=== PATIENT | male | born 1965 | race African-American/Black ===

== ENCOUNTER 2017-08-01 15:05 | Emergency (ER) | payer MEDICAID ==
[~2017-08-01] VITALS: Ht 185.4 cm; Wt 82.0 kg
[2017-08-01] MEDS ORDERED: QUET25TA PO (15:38)
[2017-08-01 17:24] LABS: BASOPHILS % (AUTO) 0.5 % (0.0-2.0); EOSINOPHILS % (AUTO) 1.2 % (1.0-6.0); HEMATOCRIT 38.9 % (41-53); HEMOGLOBIN 12.8 g/dL (13.5-17.5); LYMPHOCYTES # (AUTO) 1.7 K/uL (1.0-4.8); LYMPHOCYTES % (AUTO) 46.7 % (22.0-44.0); MEAN CORPUSCULAR HEMOGLOBIN 27.6 pg (26.0-34.0); MEAN CORPUSCULAR HGB CONC 32.9 G/dL (31.0-37.0); MEAN CORPUSCULAR VOLUME 84 fL (80-100); MONOCYTES # (AUTO) 0.4 K/uL (0.1-1.0); MONOCYTES % (AUTO) 11.1 % (2.0-9.0); NEUTROPHILS # (AUTO) 1.5 K/uL (1.8-7.7); NEUTROPHILS % (AUTO) 40.5 % (40.0-70.0); PLATELET COUNT (AUTO) 223 K/uL (150-450); RED BLOOD CELL COUNT(AUTO) 4.64 MIL/uL (4.50-5.90); RED CELL DISTRIBUTION WIDTH 15.1 % (11.5-14.5)
[2017-08-01 17:28] LABS: ANION GAP 10 mmol/L (8-16); CALCIUM, TOTAL 9.3 mg/dL (8.8-10.5); CARBON DIOXIDE 29 mmol/L (22-29); CHLORIDE 102 mmol/L (98-107); CREATININE 1.17 mg/dL (0.60-1.30); GLOMERULAR FILTR. RATE CALC > 60 mL/min (>60); GLUCOSE,RANDOM 145 mg/dL (70-110); POTASSIUM 3.6 mmol/L (3.5-5.1); SODIUM SERUM 141 mmol/L (136-145); UREA NITROGEN, BLOOD 19 mg/dL (7-18)
[2017-08-01 17:34] LABS: ALANINE AMINOTRANSFERASE 39 U/L (12-78); ALBUMIN 3.9 g/dL (3.4-5.0); ALKALINE PHOSPHATASE 63 U/L (46-116); ASPARTATE AMINOTRANSFERASE 35 U/L (15-37); BILIRUBIN,TOTAL 0.2 mg/dL (0.1-1.0); TOTAL PROTEIN, SERUM 7.8 g/dL (6.4-8.2)
[2017-08-01 19:30] VITALS: BP 157/98
== END 2017-08-01 19:43 | disposition home or self-care (01) ==
LOC: EMS 15:07
DX: F25.9 Schizoaffective disorder, unspecified (principal); Z02.89 Encounter for other administrative examinations
CPT/HCPCS: 36415; 80053; 85025; 99284; G0480

== ENCOUNTER 2018-03-09 15:31 | Inpatient (IN) | payer MEDICAID ==
[~2018-03-09] VITALS: Ht 185.4 cm; Wt 77.0 kg
[~2018-03-09 15:31] MED LIST: QUET25TA PO
[2018-03-13 14:23] VITALS: BP 123/78
[2018-03-13] MEDS ORDERED: ZOLPIDEM TARTRATE 10 MG TABLET PO PRN (14:30)
[2018-03-13] MEDS ORDERED: LORazepam 2 MG TABLET PO PRN (14:30)
[2018-03-13] MEDS ORDERED: HALOPERIDOL 5 MG TABLET PO PRN (14:30)
[2018-03-13] MEDS ORDERED: DIPH50 PO (15:14)
[2018-03-13 16:30] VITALS: BP 122/79
[2018-03-13 16:58] VITALS: BP 122/79
[2018-03-13] MEDS: OLANZapine 10 MG TABLET PO SCH (21:00)
[2018-03-14 00:49] VITALS: BP 112/70
[2018-03-14] MEDS: OLANZapine 10 MG TABLET PO SCH ×2 (09:00→09:48)
[2018-04-15] MEDS ORDERED: QUET200T PO (12:42)
== END 2018-03-14 14:40 | disposition home or self-care (01) | DRG 750 ==
LOC: B2S 03-13 13:30
PROVIDERS: ADMIT Psychiatry & Neurology Psychiatry; ATTEND Psychiatry & Neurology Psychiatry
PROC: 3E0234Z Introduction of Serum, Toxoid and Vaccine into Muscle, Percutaneous Approach (ICD-10-PCS; principal; 2018-03-13)
DX: F25.9 Schizoaffective disorder, unspecified (principal); Z59.0 Homelessness; D64.9 Anemia, unspecified; Z23 Encounter for immunization; K21.9 Gastro-esophageal reflux disease without esophagitis; Z86.73 Personal history of transient ischemic attack (TIA), and cerebral infarction without residual deficits; F32.9 Major depressive disorder, single episode, unspecified; R73.9 Hyperglycemia, unspecified
CPT/HCPCS: 90686

== ENCOUNTER 2018-06-01 17:26 | Inpatient (IN) | payer MEDICAID ==
[~2018-06-01] VITALS: Ht 185.4 cm; Wt 79.5 kg
[~2018-06-01 17:26] MED LIST changes: +QUET200T PO; -QUET25TA PO
[2018-06-01] MEDS ORDERED: HALOPERIDOL 5 MG TABLET PO PRN (17:45)
[2018-06-01] MEDS ORDERED: LORazepam 2 MG TABLET PO PRN (17:45)
[2018-06-01] MEDS ORDERED: ZOLPIDEM TARTRATE 10 MG TABLET PO PRN (17:45)
[2018-06-01 18:21] VITALS: BP 140/85
[2018-06-01] MEDS ORDERED: ACETAMINOPHEN 325 MG TABLET PO PRN (18:45)
[2018-06-01] MEDS ORDERED: ONDANSETRON HCL 4 MG TABLET PO PRN (18:45)
[2018-06-01] MEDS ORDERED: DOCUSATE SODIUM 100 MG CAPSULE PO PRN (18:45)
[2018-06-01] MEDS ORDERED: CloNIDine HCL 0.1 MG TABLET PO PRN (18:45)
[2018-06-01] MEDS ORDERED: LOPERAMIDE HCL 2 MG CAPSULE PO PRN (18:45)
[2018-06-01] MEDS ORDERED: MAG HYDROX/AL HYDROX/SIMETH ES 30 ML SUSPENSION UDCUP PO PRN (18:45)
[2018-06-01] MEDS ORDERED: PETROLATUM,WHITE 71 GM JELLY TP PRN (18:45)
[2018-06-01] MEDS ORDERED: MAGNESIUM HYDROXIDE SUSPENSION 30 ML UDCUP PO PRN (18:45)
[2018-06-01] MEDS ORDERED: NICOTINE 14 MG/24 HOUR PATCH TD PRN (18:45)
[2018-06-01] MEDS ORDERED: GuaiFENesin/D-METHORPHAN [SUGAR-FREE] 200-20MG/10 ML SYRUP UDCUP PO PRN (18:45)
[2018-06-01] MEDS ORDERED: IBUPROFEN 400 MG TABLET PO PRN (18:45)
[2018-06-01] MEDS ORDERED: ALBUTEROL SULFATE HFA 90 MCG/PUFF 8 GM INHALER IH PRN (18:45)
[2018-06-02] MEDS: QUEtiapine FUMARATE 200 MG TABLET PO SCH (20:21)
[2018-06-03] MEDS: QUEtiapine FUMARATE 200 MG TABLET PO SCH (20:53)
[2018-06-04 08:09] VITALS: BP 118/83
[2018-06-04] MEDS: QUEtiapine FUMARATE 200 MG TABLET PO SCH (20:57)
[2018-06-04] MEDS: DiphenhydrAMINE HCL 25 MG CAPSULE PO PRN (20:57)
[2018-06-05 16:00] VITALS: BP 117/73
[2018-06-05] MEDS: QUEtiapine FUMARATE 200 MG TABLET PO SCH (20:42)
[2018-06-05] MEDS: DiphenhydrAMINE HCL 25 MG CAPSULE PO PRN (20:42)
[2018-06-06 06:44] VITALS: BP 124/72
[2018-06-06 08:08] VITALS: BP 123/80
== END 2018-06-06 12:45 | disposition left against medical advice (07) | DRG 750 ==
LOC: B3A 17:43
PROVIDERS: ADMIT Psychiatry & Neurology Child & Adolescent Psychiatry; ATTEND Psychiatry & Neurology Child & Adolescent Psychiatry
DX: F25.9 Schizoaffective disorder, unspecified (principal); R45.851 Suicidal ideations; Z59.0 Homelessness; Z53.21 Procedure and treatment not carried out due to patient leaving prior to being seen by health care provider; D64.9 Anemia, unspecified; F10.10 Alcohol abuse, uncomplicated; F32.9 Major depressive disorder, single episode, unspecified; K21.9 Gastro-esophageal reflux disease without esophagitis; Z79.899 Other long term (current) drug therapy; Z86.73 Personal history of transient ischemic attack (TIA), and cerebral infarction without residual deficits

== ENCOUNTER 2019-06-17 13:32 | Inpatient (IN) | payer MEDICAID ==
[~2019-06-17] VITALS: Ht 185.4 cm; Wt 73.1 kg
[2019-06-27] MEDS ORDERED: ZOLPIDEM TARTRATE 10 MG TABLET PO PRN (15:00)
[2019-06-27] MEDS ORDERED: LORazepam 2 MG TABLET PO PRN (15:00)
[2019-06-27] MEDS ORDERED: HALOPERIDOL 5 MG TABLET PO PRN (15:00)
[2019-06-27 15:09] VITALS: BP 130/82
[2019-06-27] MEDS ORDERED: SERT50TA12 PO (15:33)
[2019-06-27] MEDS ORDERED: QUET100T PO (15:33)
[2019-06-27] MEDS ORDERED: INFLUENZA VIRUS VACCINE QVS 2019-20 (3YR+)/PF 60 MCG/0.5 ML SYRINGE IM ONE (15:45)
[2019-06-27 16:39] VITALS: BP 125/95
[2019-06-28 08:25] VITALS: BP 140/82
[2019-06-28] MEDS ORDERED: PETROLATUM,WHITE 28 GM JELLY TP PRN (12:00)
[2019-06-28] MEDS ORDERED: GuaiFENesin/D-METHORPHAN [SUGAR-FREE] 200-20MG/10 ML SYRUP UDCUP PO PRN (12:00)
[2019-06-28] MEDS ORDERED: MAGNESIUM HYDROXIDE SUSPENSION 30 ML UDCUP PO PRN (12:00)
[2019-06-28] MEDS ORDERED: DOCUSATE SODIUM 100 MG CAPSULE PO PRN (12:00)
[2019-06-28] MEDS ORDERED: CloNIDine HCL 0.1 MG TABLET PO PRN (12:00)
[2019-06-28] MEDS ORDERED: ACETAMINOPHEN 325 MG TABLET PO PRN (12:00)
[2019-06-28] MEDS ORDERED: ALBUTEROL SULFATE HFA 90 MCG/PUFF 8 GM INHALER IH PRN (12:00)
[2019-06-28] MEDS ORDERED: NICOTINE 14 MG/24 HOUR PATCH TD PRN (12:00)
[2019-06-28] MEDS ORDERED: IBUPROFEN 400 MG TABLET PO PRN (12:00)
[2019-06-28] MEDS ORDERED: LOPERAMIDE HCL 2 MG CAPSULE PO PRN (12:00)
[2019-06-28] MEDS ORDERED: MAG HYDROX/AL HYDROX/SIMETH ES 30 ML SUSPENSION UDCUP PO PRN (12:00)
[2019-06-28] MEDS ORDERED: ONDANSETRON HCL 4 MG TABLET PO PRN (12:00)
[2019-06-28] MEDS: SERTRALINE HCL 50 MG TABLET PO SCH (13:00)
[2019-06-28 16:16] VITALS: BP 100/70
[2019-06-28] MEDS ORDERED: QUEtiapine FUMARATE 100 MG TABLET PO SCH (21:00)
[2019-06-29 03:03] VITALS: BP 140/88
[2019-06-29] MEDS: SERTRALINE HCL 50 MG TABLET PO SCH (08:52)
== END 2019-06-29 13:49 | disposition home or self-care (01) | DRG 750 ==
LOC: B2S 06-27 15:06
DX: F25.1 Schizoaffective disorder, depressive type (principal); R45.851 Suicidal ideations; Z59.0 Homelessness; D64.9 Anemia, unspecified; K21.9 Gastro-esophageal reflux disease without esophagitis; F10.10 Alcohol abuse, uncomplicated; Y90.9 Presence of alcohol in blood, level not specified; Z86.73 Personal history of transient ischemic attack (TIA), and cerebral infarction without residual deficits; Z91.5 Personal history of self-harm; Z28.21 Immunization not carried out because of patient refusal
CPT/HCPCS: 90686

== ENCOUNTER 2019-08-05 09:15 | Inpatient (IN) | payer MEDICAID ==
[~2019-08-05] VITALS: Ht 185.4 cm; Wt 74.9 kg
[2019-08-05 10:33] VITALS: BP 150/81
[2019-08-05] MEDS ORDERED: LORazepam 2 MG TABLET PO PRN (11:15)
[2019-08-05] MEDS ORDERED: HALOPERIDOL 5 MG TABLET PO PRN (11:15)
[2019-08-05] MEDS ORDERED: ZOLPIDEM TARTRATE 10 MG TABLET PO PRN (11:15)
[2019-08-05] MEDS ORDERED: INFLUENZA VIRUS VACCINE QVS 2019-20 (3YR+)/PF 60 MCG/0.5 ML SYRINGE IM ONE (12:00)
[2019-08-05] MEDS ORDERED: PNEUMOCOCCAL VACCINE POLYVALENT 0.5 ML VIAL [PPSV23] IM ONE (12:00)
[2019-08-05] MEDS ORDERED: MAGNESIUM HYDROXIDE SUSPENSION 30 ML UDCUP PO PRN (15:30)
[2019-08-05] MEDS ORDERED: LOPERAMIDE HCL 2 MG CAPSULE PO PRN (15:30)
[2019-08-05] MEDS ORDERED: GuaiFENesin/D-METHORPHAN [SUGAR-FREE] 200-20MG/10 ML SYRUP UDCUP PO PRN (15:30)
[2019-08-05] MEDS ORDERED: ONDANSETRON HCL 4 MG TABLET PO PRN (15:30)
[2019-08-05] MEDS ORDERED: PETROLATUM,WHITE 28 GM JELLY TP PRN (15:30)
[2019-08-05] MEDS ORDERED: ACETAMINOPHEN 325 MG TABLET PO PRN (15:30)
[2019-08-05] MEDS ORDERED: CloNIDine HCL 0.1 MG TABLET PO PRN (15:30)
[2019-08-05] MEDS ORDERED: NICOTINE 14 MG/24 HOUR PATCH TD PRN (15:30)
[2019-08-05] MEDS ORDERED: DOCUSATE SODIUM 100 MG CAPSULE PO PRN (15:30)
[2019-08-05] MEDS ORDERED: ALBUTEROL SULFATE HFA 90 MCG/PUFF 8 GM INHALER IH PRN (15:30)
[2019-08-05] MEDS ORDERED: IBUPROFEN 400 MG TABLET PO PRN (15:30)
[2019-08-05] MEDS ORDERED: MAG HYDROX/AL HYDROX/SIMETH ES 30 ML SUSPENSION UDCUP PO PRN (15:30)
[2019-08-05 16:08] VITALS: BP 103/67
[2019-08-06 08:03] VITALS: BP 139/81
[2019-08-06] MEDS: CIPROFLOXACIN HCL 0.3% 3.5 GM OPHTHALMIC OINTMENT OS SCH ×3 (11:00→16:35)
[2019-08-06] MEDS: SERTRALINE HCL 50 MG TABLET PO SCH (13:30)
[2019-08-06 16:41] VITALS: BP 155/81
[2019-08-06] MEDS: QUEtiapine FUMARATE 100 MG TABLET PO SCH (20:27)
[2019-08-07] MEDS: SERTRALINE HCL 50 MG TABLET PO SCH (09:00)
[2019-08-07] MEDS: CIPROFLOXACIN HCL 0.3% 3.5 GM OPHTHALMIC OINTMENT OS SCH ×3 (09:00→16:18)
[2019-08-07] MEDS: QUEtiapine FUMARATE 100 MG TABLET PO SCH (20:48)
[2019-08-08 00:11] VITALS: BP 132/87
[2019-08-08 08:11] VITALS: BP 147/87
[2019-08-08] MEDS: SERTRALINE HCL 50 MG TABLET PO SCH (08:58)
[2019-08-08] MEDS: CIPROFLOXACIN HCL 0.3% 3.5 GM OPHTHALMIC OINTMENT OS SCH ×3 (08:58→16:24)
[2019-08-08 16:01] VITALS: BP 144/74
[2019-08-08] MEDS: QUEtiapine FUMARATE 100 MG TABLET PO SCH (20:12)
[2019-08-09 04:27] VITALS: BP 129/76
[2019-08-09 08:32] VITALS: BP 134/71
[2019-08-09] MEDS: CIPROFLOXACIN HCL 0.3% 3.5 GM OPHTHALMIC OINTMENT OS SCH ×3 (09:00→16:31)
[2019-08-09] MEDS: SERTRALINE HCL 50 MG TABLET PO SCH (09:34)
[2019-08-09 16:15] VITALS: BP 160/95
[2019-08-09] MEDS ORDERED: RisperiDONE 2 MG TABLET PO SCH (21:00)
[2019-08-10 07:12] VITALS: BP 116/72
[2019-08-10] MEDS: SERTRALINE HCL 50 MG TABLET PO SCH (08:38)
[2019-08-10] MEDS: CIPROFLOXACIN HCL 0.3% 3.5 GM OPHTHALMIC OINTMENT OS SCH (08:40)
[2019-08-10] MEDS ORDERED: RISP2 PO (11:11)
[2019-08-10] MEDS ORDERED: SERT50TA12 PO (11:11)
== END 2019-08-10 12:25 | disposition home or self-care (01) | DRG 750 ==
LOC: B2S 11:39
PROVIDERS: ADMIT Psychiatry & Neurology Child & Adolescent Psychiatry
DX: F25.1 Schizoaffective disorder, depressive type (principal); Z59.0 Homelessness; B18.2 Chronic viral hepatitis C; D64.9 Anemia, unspecified; K21.9 Gastro-esophageal reflux disease without esophagitis; Z79.899 Other long term (current) drug therapy; Z91.5 Personal history of self-harm; F41.9 Anxiety disorder, unspecified; B19.20 Unspecified viral hepatitis C without hepatic coma; Z28.21 Immunization not carried out because of patient refusal
CPT/HCPCS: 83036